=== PATIENT | male | born 1980 | race Caucasian/White ===

== ENCOUNTER 2025-11-18 17:28 | Emergency (ER) | payer OTHER, SELFPAY ==
[2025-11-18 18:11] VITALS: BP 156/95; PULSE 78; RESP 16; TEMP 36.9; O2SAT 97; BMI 29.6
[2025-11-18 21:14] VITALS: BP 155/78; PULSE 56; RESP 15; O2SAT 96
--- NOTE | 2025-11-18 21:56 | ED.SKABFB ---
HPI - Skin/Abscess/Foreign Bdy General Chief complaint: Skin/Abscess/Foreign Body Stated complaint: Abx, prev infected laceration Time Seen by Provider: 11/18/25 21:39 Source: patient Mode of arrival: Ambulatory Limitations: no limitations History of Present Illness HPI narrative: 44-year-old gentleman no significant medical history had a superficial laceration to the 1st knuckle on his left hand on the radial side about a week ago. Seemed to be healing nicely, he is keeping the wound covered. Today he noticed that it was becoming more swollen hurting more in the edges were appearing bit more red and puffy. Previously he had had similar symptoms waited for an extended period of time and ended up in the hospital with a deep tissue infection. You would like to avoid that again and comes in earlier with concerns that he needs antibiotics. He is not having any fevers or chills. He is neurovascularly intact. Related Data Previous Rx's ?Medication ?Instructions ?Recorded doxycycline hyclate 100 mg capsule 100 mg PO BID #20 caps 11/18/25 Allergies Allergy/AdvReac Type Severity Reaction Status Date / Time Penicillins Allergy Verified 07/08/25 00:36 bees Allergy Uncoded 07/08/25 00:36 Review of Systems Review of Systems Narrative: Pertinent positive and negative findings as per HPI Patient History Social History Smoking Status: Current every day smoker Smoking Status: Current every day smoker Exam Initial Vital Signs Initial Vital Signs: Vital Signs Temperature 98.4 F 11/18/25 18:11 Pulse Rate 78 11/18/25 18:11 Respiratory Rate 16 11/18/25 18:11 Blood Pressure 156/95 H 11/18/25 18:11 Pulse Oximetry 97 11/18/25 18:11 Oxygen Delivery Method Room Air 11/18/25 18:11 General: Alert appropriate in no acute distress Respiratory: Able to speak in full sentences, no obvious respiratory distress Skin: No obvious rashes, warm and dry Neurologic: Grossly intact no obvious asymmetries or abnormalities Psych: appropriate insight and affect, cooperative Extremity . Partially healed 1.5 cm curvilinear lot of laceration to the thenar side of his 1st knuckle. Slight erythema and warmth. No significant drainage no obvious underlying abscess, no pain with manipulation of fingers or hand. Course Vital Signs Vital signs: Vital Signs - 8 hr 11/18/25 18:11 Temperature 98.4 F Pulse Rate 78 Respiratory Rate 16 Blood Pressure 156/95 H Pulse Oximetry 97 Oxygen Delivery Method Room Air MDM - Skin/Abscess/Foreign Bdy MDM Narrative Medical decision making narrative: 44-year-old gentleman with a small cut to the left hand 1st knuckle that does appear to be getting infected. The initial wound was over a week ago, the wound is mostly closed. No obvious deeper tissue abscess. I agree with his assessment that he needs antibiotics. He is started on doxycycline and a prescription is given. Talked about anticipated course of recovery. He has already had 1 hand infection that got significantly worse which is why he came in early for evaluation this time. He knows when he needs to return. There was no indication for further workup including labs hospitalization or imaging and he is safely discharged Discharge Plan Departure Patient Disposition: Home Clinical Impression: Cellulitis Qualifiers: Site of cellulitis: extremity Site of cellulitis of extremity: finger Instructions: DI for Cellulitis -- Adult Activity Restrictions/Additional Instructions: Thank you for coming in today and for waiting as long as you did. The cut on your left hand does look like it is starting to get infected. It does not look like there is a deeper abscess, there is not any streaking up your arm, this does not look like a deeper hand infection that would require blood work, IV antibiotics or further x-rays at this time. I have given you the 1st dose of doxycycline here in the emergency department. 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 Using 400 mg of ibuprofen (2 [id number] pills) and 1 Tylenol every 6 hours can be very helpful in controlling pain. You showed excellent judgment and coming in early with this infection. If it seems like it is getting worse you are having new symptoms please do return Prescriptions: New doxycycline hyclate 100 mg capsule 100 mg PO BID Qty: 20 0RF Stand Alone Forms: Patient Portal/API
[2025-11-18] MEDS: DOXYCYCLINE HYCLATE 100 MG TABLET PO (22:29)
== END 2025-11-18 22:35 | disposition home or self-care (01) ==
PROVIDERS: Emergency Provider Emergency Medicine
DX: L03.012 Cellulitis of left finger (principal)
CPT/HCPCS: 99283